=== PATIENT | female | born 1930 | race Asian ===

== ENCOUNTER 2016-12-21 13:05 | Emergency (ER) | payer OTHER ==
[~2016-12-21] VITALS: Ht 154.9 cm; Wt 75.0 kg
[~2016-12-21 13:05] MED LIST: DOCU-119 PO; FERR1TAB24 PO; METO50TA5 PO; MULT-71 PO; OMEP20CA10 PO; PANT40TA25 PO
[2016-12-21] MEDS ORDERED: FURO20 PO (13:44)
[2016-12-21] MEDS ORDERED: METO-323 PO (13:44)
[2016-12-21] MEDS ORDERED: ALLO100T PO (13:44)
[2016-12-21] MEDS ORDERED: KDUR10 PO (13:44)
[2016-12-21] MEDS ORDERED: IBUPROFEN 800 MG TABLET PO ONE (15:30)
[2016-12-21 17:16] VITALS: BP 114/68
== END 2016-12-21 17:29 | disposition home or self-care (01) ==
LOC: EMS 13:06
DX: S40.021A Contusion of right upper arm, initial encounter (principal); M79.641 Pain in right hand; J44.9 Chronic obstructive pulmonary disease, unspecified; E78.00 Pure hypercholesterolemia, unspecified; W01.0XXA Fall on same level from slipping, tripping and stumbling without subsequent striking against object, initial encounter; Y93.89 Activity, other specified; Y92.89 Other specified places as the place of occurrence of the external cause; Y99.8 Other external cause status
CPT/HCPCS: 99284

== ENCOUNTER 2017-09-20 09:44 | Inpatient (IN) | payer MEDICARE, OTHER ==
[~2017-09-20] VITALS: Ht 152.4 cm; Wt 62.7 kg
[~2017-09-20 09:44] MED LIST changes: +ALLO100T PO; -DOCU-119 PO; -FERR1TAB24 PO; +FURO20 PO; +KDUR10 PO; +METO25XL PO; +METO50TA18 PO; -METO50TA5 PO; -MULT-71 PO; -OMEP20CA10 PO; -PANT40TA25 PO
[2017-09-20] MEDS ORDERED: CALC-1038 PO (10:05)
[2017-09-20] MEDS ORDERED: MULT-1259 PO (10:05)
[2017-09-20] MEDS ORDERED: OMEP10 PO (10:05)
[2017-09-20] MEDS ORDERED: ATOR20TA86 PO (10:05)
[2017-09-20 10:56] LABS: BASOPHILS % (AUTO) 0.6 % (0.0-2.0); EOSINOPHILS % (AUTO) 6.1 % (1.0-6.0); HEMATOCRIT 32.3 % (36-46); HEMOGLOBIN 10.6 g/dL (12.0-16.0); MEAN CORPUSCULAR HEMOGLOBIN 29.8 pg (26.0-34.0); MEAN CORPUSCULAR HGB CONC 32.7 G/dL (31.0-37.0); MEAN CORPUSCULAR VOLUME 91 fL (80-100); MONOCYTES # (AUTO) 0.6 K/uL (0.1-1.0); MONOCYTES % (AUTO) 6.9 % (2.0-9.0); NEUTROPHILS % (AUTO) 75.4 % (40.0-70.0); PLATELET COUNT (AUTO) 440 K/uL (150-450); RED BLOOD CELL COUNT(AUTO) 3.54 MIL/uL (4.00-5.20); RED CELL DISTRIBUTION WIDTH 17.2 % (11.5-14.5)
[2017-09-20 11:10] LABS: GLUCOSE, URINE (UA) NEGATIVE (NEGATIVE); KETONES,URINE TRACE mg/dL (NEGATIVE); LEUKOCYTE ESTERASE ,URINE SMALL (NEGATIVE); NITRATE,URINE NEGATIVE (NEGATIVE); OCCULT BLOOD,URINE NEGATIVE (NEGATIVE); PROTEIN,URINE TRACE (NEGATIVE)
[2017-09-20 11:11] LABS: CALCIUM, TOTAL 8.8 mg/dL (8.8-10.5); CREATININE 1.55 mg/dL (0.60-1.30); POTASSIUM 4.6 mmol/L (3.5-5.1)
[2017-09-20 11:13] LABS: APPEARANCE,URINE HAZY (CLEAR); BILIRUBIN,URINE PRELIM. POSITIVE (NEGATIVE)
[2017-09-20 11:14] LABS: ALBUMIN 2.6 g/dL (3.4-5.0); BILIRUBIN,TOTAL 0.7 mg/dL (0.1-1.0); TOTAL PROTEIN, SERUM 7.6 g/dL (6.4-8.2)
[2017-09-20 11:21] LABS: BACTERIA,URINE Few /HPF (None Seen); RBC,URINE 0-2 /HPF (0-2); SQUAMOUS EPITHELIAL CELL,UR Rare /LPF (None Seen)
[2017-09-20] MEDS ORDERED: SODIUM CHLORIDE 0.9% 1,000 ML IV ONE ×2 (12:30→20:00)
[2017-09-20] MEDS ORDERED: BARIUM SULFATE 0.1% SUSPENSION 450 ML BOTTLE PO ONE (14:30)
[2017-09-20] MEDS ORDERED: SODIUM CHLORIDE 0.9% 100 ML ONE (14:50)
[2017-09-20] MEDS ORDERED: IOVERSOL 350 MG/ML 100 ML VIAL ONE (14:50)
[2017-09-20] MEDS ORDERED: ONDANSETRON HCL 4 MG/2 ML VIAL IVP ONE ×2 (15:45→20:00)
[2017-09-20] MEDS ORDERED: 0.9% SODIUM CHLORIDE 10 ML SYRINGE IVP PRN (20:00)
[2017-09-20] MEDS ORDERED: ACETAMINOPHEN 325 MG TABLET PO PRN (20:00)
[2017-09-20] MEDS ORDERED: HYDROmorphone 2 MG/ML SYRINGE IVP ONE (20:00)
[2017-09-20] MEDS ORDERED: ONDANSETRON HCL 4 MG/2 ML VIAL IVP PRN (20:00)
[2017-09-20] MEDS ORDERED: ASPIRIN 325 MG TABLET PO ONE (20:15)
[2017-09-20 22:35] LABS: INFLUENZA TYPE A NEGATIVE FOR TYPE A (NEGATIVE); INFLUENZA TYPE B NEGATIVE FOR TYPE B (NEGATIVE)
[2017-09-20] MEDS ORDERED: HEPARIN SODIUM,PORCINE 5,000 UNITS/ML VIAL SQ SCH (23:00)
[2017-09-20 23:18] VITALS: BP 110/61
[2017-09-21 04:53] VITALS: BP 104/56
[2017-09-21 07:31] LABS: BASOPHILS % (AUTO) 0.8 % (0.0-2.0); EOSINOPHILS % (AUTO) 8.1 % (1.0-6.0); HEMATOCRIT 26.5 % (36-46); HEMOGLOBIN 8.7 g/dL (12.0-16.0); LYMPHOCYTES % (AUTO) 14.7 % (22.0-44.0); MEAN CORPUSCULAR HEMOGLOBIN 30.2 pg (26.0-34.0); MEAN CORPUSCULAR VOLUME 92 fL (80-100); MONOCYTES # (AUTO) 0.6 K/uL (0.1-1.0); NEUTROPHILS # (AUTO) 4.5 K/uL (1.8-7.7); NEUTROPHILS % (AUTO) 67.4 % (40.0-70.0); PLATELET COUNT (AUTO) 352 K/uL (150-450); RED BLOOD CELL COUNT(AUTO) 2.89 MIL/uL (4.00-5.20); RED CELL DISTRIBUTION WIDTH 17.7 % (11.5-14.5)
[2017-09-21 07:37] LABS: ALBUMIN 2.1 g/dL (3.4-5.0); BILIRUBIN,TOTAL 0.4 mg/dL (0.1-1.0); CALCIUM, TOTAL 7.8 mg/dL (8.8-10.5); CREATININE 1.52 mg/dL (0.60-1.30); POTASSIUM 3.8 mmol/L (3.5-5.1)
[2017-09-21] MEDS: METOPROLOL SUCCINATE 25 MG ER TABLET PO SCH (09:03)
[2017-09-21] MEDS: POTASSIUM CHLORIDE 20 MEQ ER TABLET PO SCH (09:03)
[2017-09-21] MEDS: OMEPRAZOLE 10 MG CAPSULE PO SCH (09:03)
[2017-09-21] MEDS: ALLOPURINOL 100 MG TABLET PO SCH (09:03)
[2017-09-21] MEDS: CALCIUM OYSTER SHELL 500 MG TABLET PO SCH (09:04)
[2017-09-21] MEDS: FUROSEMIDE 20 MG TABLET PO SCH (09:04)
[2017-09-21] MEDS: MULTIVITAMINS WITH MINERALS, THERAPEUTIC TABLET PO SCH (09:04)
[2017-09-21 11:26] VITALS: BP 111/60
[2017-09-21 11:28] VITALS: BP 107/59
[2017-09-21] MEDS ORDERED: PEG 3350/NA SULF,BICARB,CL/KCL 4000 ML SOLUTION PO ONE (12:00)
[2017-09-21 15:46] VITALS: BP 110/57
[2017-09-21 16:20] LABS: VITAMIN B12 LEVEL 1133 pg/mL (211-911)
[2017-09-21 16:31] LABS: FOLATE SERUM > 24.0 ng/mL (5.4-)
[2017-09-21 19:57] VITALS: BP 111/52
[2017-09-21] MEDS: ATORVASTATIN CALCIUM 20 MG TABLET PO SCH ×2 (20:30→20:36)
[2017-09-22] VITALS (7 sets, daily range): BP systolic 98–128; BP diastolic 48–68
[2017-09-22 05:52] LABS: BASOPHILS % (AUTO) 0.8 % (0.0-2.0); EOSINOPHILS % (AUTO) 7.3 % (1.0-6.0); HEMATOCRIT 26.9 % (36-46); HEMOGLOBIN 8.8 g/dL (12.0-16.0); LYMPHOCYTES # (AUTO) 1.2 K/uL (1.0-4.8); LYMPHOCYTES % (AUTO) 16.1 % (22.0-44.0); MEAN CORPUSCULAR HEMOGLOBIN 29.8 pg (26.0-34.0); MEAN CORPUSCULAR HGB CONC 32.7 G/dL (31.0-37.0); MEAN CORPUSCULAR VOLUME 91 fL (80-100); MONOCYTES # (AUTO) 0.6 K/uL (0.1-1.0); MONOCYTES % (AUTO) 8.1 % (2.0-9.0); NEUTROPHILS # (AUTO) 4.9 K/uL (1.8-7.7); NEUTROPHILS % (AUTO) 67.7 % (40.0-70.0); PLATELET COUNT (AUTO) 366 K/uL (150-450); RED BLOOD CELL COUNT(AUTO) 2.95 MIL/uL (4.00-5.20); RED CELL DISTRIBUTION WIDTH 17.3 % (11.5-14.5)
[2017-09-22 06:03] LABS: CALCIUM, TOTAL 8.1 mg/dL (8.8-10.5); CREATININE 1.33 mg/dL (0.60-1.30); MAGNESIUM 1.9 mg/dL (1.80-2.40); PHOSPHORUS 3.7 mg/dL (2.5-4.9); POTASSIUM 4.3 mmol/L (3.5-5.1)
[2017-09-22 07:09] LABS: % IRON SATURATION 11.7 % (22-44)
[2017-09-22] MEDS: POTASSIUM CHLORIDE 20 MEQ ER TABLET PO SCH (09:58)
[2017-09-22] MEDS: MULTIVITAMINS WITH MINERALS, THERAPEUTIC TABLET PO SCH (09:58)
[2017-09-22] MEDS: FUROSEMIDE 20 MG TABLET PO SCH (09:58)
[2017-09-22] MEDS: OMEPRAZOLE 10 MG CAPSULE PO SCH (09:58)
[2017-09-22] MEDS: ALLOPURINOL 100 MG TABLET PO SCH (10:00)
[2017-09-22] MEDS: EPOETIN ALFA 10,000 UNITS/ML VIAL SQ SCH (10:00)
[2017-09-22] MEDS: CALCIUM OYSTER SHELL 500 MG TABLET PO SCH (10:00)
[2017-09-22] MEDS: METOPROLOL SUCCINATE 25 MG ER TABLET PO SCH (10:05)
[2017-09-22] MEDS ORDERED: SODIUM CHLORIDE 0.9% 1,000 ML IV ONE (11:00)
[2017-09-22] MEDS ORDERED: KDUR20 PO (12:36)
[2017-09-22] MEDS ORDERED: METO-558 PO (12:36)
[2017-09-22] MEDS: SOD FERRIC GLUC COMPLX/SUCROSE 125 MG in SODIUM CHLORIDE 0.9% 100 ML IV SCH (13:48)
[2017-09-22] MEDS: ONDANSETRON HCL 4 MG/2 ML VIAL IVP SCH ×2 (15:35→18:43)
[2017-09-22] MEDS ORDERED: PEG 3350/NA SULF,BICARB,CL/KCL 4000 ML SOLUTION PO ONE (18:00)
[2017-09-22] MEDS: ATORVASTATIN CALCIUM 20 MG TABLET PO SCH (21:44)
[2017-09-23] VITALS (7 sets, daily range): BP systolic 103–115; BP diastolic 47–67
[2017-09-23] MEDS: ONDANSETRON HCL 4 MG/2 ML VIAL IVP SCH ×2 (00:33→06:08)
[2017-09-23] MEDS ORDERED: PROPOFOL 1% 20 ML VIAL IVP ONE (04:13)
[2017-09-23] MEDS ORDERED: EPHEDrine SULFATE 50 MG/ML VIAL IM ONE (04:13)
[2017-09-23 07:19] LABS: BASOPHILS # (AUTO) 0.05 K/uL (0.00-0.20); BASOPHILS % (AUTO) 0.7 % (0.0-2.0); EOSINOPHILS # (AUTO) 0.55 K/uL (0.00-0.70); EOSINOPHILS % (AUTO) 8.08 % (1.0-6.0); HEMATOCRIT 26.9 % (36-46); HEMOGLOBIN 8.5 g/dL (12.0-16.0); MEAN CORPUSCULAR HEMOGLOBIN 29.1 pg (26.0-34.0); MEAN CORPUSCULAR HGB CONC 31.7 G/dL (31.0-37.0); MEAN CORPUSCULAR VOLUME 92 fL (80-100); MONOCYTES # (AUTO) 0.6 K/uL (0.1-1.0); MONOCYTES % (AUTO) 8.6 % (2.0-9.0); NEUTROPHILS # (AUTO) 4.6 K/uL (1.8-7.7); NEUTROPHILS % (AUTO) 67.6 % (40.0-70.0); PLATELET COUNT (AUTO) 353 K/uL (150-450); RED BLOOD CELL COUNT(AUTO) 2.93 MIL/uL (4.00-5.20); RED CELL DISTRIBUTION WIDTH 17.5 % (11.5-14.5)
[2017-09-23 07:30] LABS: CREATININE 1.39 mg/dL (0.60-1.30); PHOSPHORUS 3.4 mg/dL (2.5-4.9); POTASSIUM 4.2 mmol/L (3.5-5.1)
[2017-09-23] MEDS: OMEPRAZOLE 10 MG CAPSULE PO SCH (09:00)
[2017-09-23] MEDS: MULTIVITAMINS WITH MINERALS, THERAPEUTIC TABLET PO SCH (09:00)
[2017-09-23] MEDS: METOPROLOL SUCCINATE 25 MG ER TABLET PO SCH (09:00)
[2017-09-23] MEDS: CALCIUM OYSTER SHELL 500 MG TABLET PO SCH (09:00)
[2017-09-23] MEDS: ALLOPURINOL 100 MG TABLET PO SCH (09:00)
[2017-09-23] MEDS: FUROSEMIDE 20 MG TABLET PO SCH (09:00)
[2017-09-23] MEDS: POTASSIUM CHLORIDE 20 MEQ ER TABLET PO SCH (09:00)
[2017-09-23] MEDS ORDERED: SODIUM CHLORIDE 0.9% 1,000 ML IV ONE ×3 (09:40→12:30)
[2017-09-23] MEDS ORDERED: RINGERS SOLUTION,LACTATED 2,000 ML IV ONE (12:30)
[2017-09-23] MEDS ORDERED: SODIUM CL IRRIG SOLN BAG 3,000 ML IRRIG ONE (12:31)
[2017-09-23] MEDS: SOD FERRIC GLUC COMPLX/SUCROSE 125 MG in SODIUM CHLORIDE 0.9% 100 ML IV SCH (14:27)
[2017-09-23] MEDS ORDERED: SODIUM CHLORIDE 0.9% 50 ML ONE (14:32)
[2017-09-23] MEDS: OXYGEN THERAPY IH SCH (20:00)
[2017-09-23] MEDS: ATORVASTATIN CALCIUM 20 MG TABLET PO SCH (20:50)
[2017-09-24 05:28] VITALS: BP 117/58
[2017-09-24 07:15] VITALS: BP 103/55
[2017-09-24 07:33] LABS: BASOPHILS # (AUTO) 0.04 K/uL (0.00-0.20); BASOPHILS % (AUTO) 0.5 % (0.0-2.0); EOSINOPHILS % (AUTO) 6.95 % (1.0-6.0); HEMATOCRIT 27.7 % (36-46); HEMOGLOBIN 8.8 g/dL (12.0-16.0); LYMPHOCYTES # (AUTO) 1.1 K/uL (1.0-4.8); LYMPHOCYTES % (AUTO) 15.8 % (22.0-44.0); MEAN CORPUSCULAR HEMOGLOBIN 29.2 pg (26.0-34.0); MEAN CORPUSCULAR HGB CONC 31.8 G/dL (31.0-37.0); MEAN CORPUSCULAR VOLUME 92 fL (80-100); MONOCYTES # (AUTO) 0.6 K/uL (0.1-1.0); MONOCYTES % (AUTO) 8.2 % (2.0-9.0); NEUTROPHILS # (AUTO) 4.9 K/uL (1.8-7.7); NEUTROPHILS % (AUTO) 68.6 % (40.0-70.0); PLATELET COUNT (AUTO) 341 K/uL (150-450); RED BLOOD CELL COUNT(AUTO) 3.02 MIL/uL (4.00-5.20)
[2017-09-24] MEDS ORDERED: GUM MASTIC/STORAX/MSAL/ALCOHOL LIQUID 0.67 ML VIAL TP ONE (07:36)
[2017-09-24] MEDS ORDERED: LIDOCAINE HCL 1%/EPI 1:200,000/PF 10 ML VIAL ONE (07:36)
[2017-09-24] MEDS ORDERED: RINGERS SOLUTION,LACTATED 0 ML IV ONE (07:36)
[2017-09-24] MEDS ORDERED: SODIUM CHLORIDE 0.9% 0 ML IV ONE (07:36)
[2017-09-24] MEDS ORDERED: SODIUM CL IRRIG SOLN BAG 0 ML IRRIG ONE (07:36)
[2017-09-24 07:44] LABS: INR 1.1 (0.9-1.1); PROTHROMBIN TIME 11.8 SEC (9.4-11.6)
[2017-09-24 07:47] LABS: CALCIUM, TOTAL 8.4 mg/dL (8.8-10.5); CREATININE 1.26 mg/dL (0.60-1.30); MAGNESIUM 2.1 mg/dL (1.80-2.40); PHOSPHORUS 3.5 mg/dL (2.5-4.9)
[2017-09-24] MEDS: OXYGEN THERAPY IH SCH ×2 (08:00→20:00)
[2017-09-24] MEDS ORDERED: HEPARIN SODIUM 1000 UNITS/NS 500 ML ONE (09:00)
[2017-09-24] MEDS: METOPROLOL SUCCINATE 25 MG ER TABLET PO SCH (09:00)
[2017-09-24] MEDS ORDERED: ACETAMINOPHEN 1000 MG/ISO-OSM 0 ML IV ONE (09:17)
[2017-09-24] MEDS ORDERED: RINGERS SOLUTION,LACTATED 1,000 ML IV ONE (09:18)
[2017-09-24] MEDS ORDERED: DEXTROSE 50%-WATER 25 GM/50 ML SYRINGE IVP ONE (09:45)
[2017-09-24] MEDS: POTASSIUM CHLORIDE 20 MEQ ER TABLET PO SCH (10:55)
[2017-09-24] MEDS: FUROSEMIDE 20 MG TABLET PO SCH (10:55)
[2017-09-24] MEDS: MULTIVITAMINS WITH MINERALS, THERAPEUTIC TABLET PO SCH (10:55)
[2017-09-24] MEDS: OMEPRAZOLE 10 MG CAPSULE PO SCH (10:55)
[2017-09-24] MEDS: CALCIUM OYSTER SHELL 500 MG TABLET PO SCH (10:55)
[2017-09-24] MEDS: ALLOPURINOL 100 MG TABLET PO SCH (10:57)
[2017-09-24 11:22] VITALS: BP 127/62
[2017-09-24] MEDS: SOD FERRIC GLUC COMPLX/SUCROSE 125 MG in SODIUM CHLORIDE 0.9% 100 ML IV SCH (13:11)
[2017-09-24 16:00] VITALS: BP 118/66
[2017-09-24 19:35] VITALS: BP 108/64
[2017-09-24] MEDS: ATORVASTATIN CALCIUM 20 MG TABLET PO SCH (20:47)
[2017-09-24] MEDS: TEMAZEPAM 15 MG CAPSULE PO PRN (20:47)
[2017-09-25] VITALS (9 sets, daily range): BP systolic 107–132; BP diastolic 55–77
[2017-09-25 08:00] LABS: BASOPHILS # (AUTO) 0.04 K/uL (0.00-0.20); BASOPHILS % (AUTO) 0.5 % (0.0-2.0); EOSINOPHILS % (AUTO) 9.21 % (1.0-6.0); HEMATOCRIT 29.8 % (36-46); HEMOGLOBIN 9.4 g/dL (12.0-16.0); LYMPHOCYTES # (AUTO) 0.8 K/uL (1.0-4.8); LYMPHOCYTES % (AUTO) 9.9 % (22.0-44.0); MEAN CORPUSCULAR HEMOGLOBIN 29.2 pg (26.0-34.0); MEAN CORPUSCULAR HGB CONC 31.5 G/dL (31.0-37.0); MEAN CORPUSCULAR VOLUME 93 fL (80-100); MONOCYTES # (AUTO) 0.7 K/uL (0.1-1.0); MONOCYTES % (AUTO) 8.8 % (2.0-9.0); NEUTROPHILS # (AUTO) 5.5 K/uL (1.8-7.7); NEUTROPHILS % (AUTO) 71.6 % (40.0-70.0); PLATELET COUNT (AUTO) 369 K/uL (150-450); RED BLOOD CELL COUNT(AUTO) 3.21 MIL/uL (4.00-5.20); RED CELL DISTRIBUTION WIDTH 18.3 % (11.5-14.5)
[2017-09-25] MEDS: OXYGEN THERAPY IH SCH ×2 (08:00→20:07)
[2017-09-25] MEDS ORDERED: POTASSIUM CHLORIDE 20 MEQ ER TABLET PO SCH (09:00)
[2017-09-25] MEDS: CALCIUM OYSTER SHELL 500 MG TABLET PO SCH (09:00)
[2017-09-25] MEDS: OMEPRAZOLE 10 MG CAPSULE PO SCH (09:00)
[2017-09-25] MEDS: METOPROLOL SUCCINATE 25 MG ER TABLET PO SCH (09:00)
[2017-09-25] MEDS: ALLOPURINOL 100 MG TABLET PO SCH (09:00)
[2017-09-25] MEDS: FUROSEMIDE 20 MG TABLET PO SCH (09:00)
[2017-09-25] MEDS: MULTIVITAMINS WITH MINERALS, THERAPEUTIC TABLET PO SCH (09:00)
[2017-09-25] MEDS: EPOETIN ALFA 10,000 UNITS/ML VIAL SQ SCH (09:10)
[2017-09-25 09:14] LABS: CALCIUM, TOTAL 8.4 mg/dL (8.8-10.5); CREATININE 1.35 mg/dL (0.60-1.30); PHOSPHORUS 3.6 mg/dL (2.5-4.9); POTASSIUM 4.2 mmol/L (3.5-5.1)
[2017-09-25] MEDS ORDERED: SODIUM BICARBONATE 50 MEQ/50 ML VIAL ONE (10:11)
[2017-09-25] MEDS ORDERED: IOHEXOL 300 MG/ML 100 ML VIAL ONE (10:11)
[2017-09-25] MEDS ORDERED: LIDOCAINE HCL/PF 1% 30 ML VIAL ONE (10:11)
[2017-09-25] MEDS ORDERED: HEPARIN SODIUM 1000 UNITS/NS 1,000 ML ONE (10:12)
[2017-09-25] MEDS ORDERED: FentaNYL CITRATE-PF 100 MCG/2 ML VIAL ONE (11:53)
[2017-09-25] MEDS ORDERED: MIDAZOLAM HCL 2 MG/2 ML VIAL ONE (11:53)
[2017-09-25] MEDS ORDERED: HEPARIN SODIUM 1000 UNITS/NS 1,000 ML IARTER ONE (12:37)
[2017-09-25] MEDS ORDERED: SODIUM CHLORIDE 0.9% 500 ML IV ONE (12:37)
[2017-09-25] MEDS ORDERED: IOHEXOL 300 MG/ML 150 ML VIAL IARTER ONE (12:45)
[2017-09-25] MEDS ORDERED: LIDOCAINE 1% 30 ML/SOD BICARB 8.4% 4 ML SQ ONE (12:45)
[2017-09-25] MEDS: SOD FERRIC GLUC COMPLX/SUCROSE 125 MG in SODIUM CHLORIDE 0.9% 100 ML IV SCH (13:50)
[2017-09-25] MEDS: ATORVASTATIN CALCIUM 20 MG TABLET PO SCH (20:44)
[2017-09-26] VITALS (7 sets, daily range): BP systolic 99–128; BP diastolic 56–69
[2017-09-26 06:23] LABS: CALCIUM, TOTAL 8.1 mg/dL (8.8-10.5); CREATININE 1.24 mg/dL (0.60-1.30); PHOSPHORUS 3.4 mg/dL (2.5-4.9); POTASSIUM 4.4 mmol/L (3.5-5.1)
[2017-09-26] MEDS: OXYGEN THERAPY IH SCH ×2 (08:00→20:00)
[2017-09-26] MEDS: MULTIVITAMINS WITH MINERALS, THERAPEUTIC TABLET PO SCH (08:55)
[2017-09-26] MEDS: ALLOPURINOL 100 MG TABLET PO SCH (08:55)
[2017-09-26] MEDS: OMEPRAZOLE 10 MG CAPSULE PO SCH (08:55)
[2017-09-26] MEDS: FUROSEMIDE 20 MG TABLET PO SCH (08:55)
[2017-09-26] MEDS: CALCIUM OYSTER SHELL 500 MG TABLET PO SCH (08:55)
[2017-09-26] MEDS ORDERED: POTASSIUM CHLORIDE 10 MEQ ER TABLET PO SCH (09:00)
[2017-09-26] MEDS: METOPROLOL SUCCINATE 25 MG ER TABLET PO SCH (09:00)
[2017-09-26] MEDS ORDERED: MAGNESIUM CITRATE 300 ML ORAL SOLUTION PO ONE (09:00)
[2017-09-26] MEDS: NEOMYCIN SULFATE 500 MG TABLET PO SCH ×2 (12:23→17:36)
[2017-09-26] MEDS: SOD FERRIC GLUC COMPLX/SUCROSE 125 MG in SODIUM CHLORIDE 0.9% 100 ML IV SCH (12:27)
[2017-09-26] MEDS: ERYTHROMYCIN BASE 500 MG TABLET PO SCH ×2 (12:27→17:36)
[2017-09-26] MEDS: ATORVASTATIN CALCIUM 20 MG TABLET PO SCH (20:38)
[2017-09-26] MEDS: TEMAZEPAM 15 MG CAPSULE PO PRN (22:25)
[2017-09-27 05:02] VITALS: BP 109/59
[2017-09-27] MEDS ORDERED: 0.9% SODIUM CHLORIDE 10 ML SYRINGE IVP ONE (06:44)
[2017-09-27 06:46] LABS: BASOPHILS % (AUTO) 0.4 % (0.0-2.0); EOSINOPHILS % (AUTO) 6.2 % (1.0-6.0); HEMATOCRIT 30.7 % (36-46); HEMOGLOBIN 9.9 g/dL (12.0-16.0); LYMPHOCYTES # (AUTO) 0.7 K/uL (1.0-4.8); LYMPHOCYTES % (AUTO) 6.7 % (22.0-44.0); MEAN CORPUSCULAR HEMOGLOBIN 29.6 pg (26.0-34.0); MEAN CORPUSCULAR VOLUME 92 fL (80-100); MONOCYTES # (AUTO) 0.6 K/uL (0.1-1.0); MONOCYTES % (AUTO) 6.4 % (2.0-9.0); NEUTROPHILS # (AUTO) 7.8 K/uL (1.8-7.7); NEUTROPHILS % (AUTO) 80.3 % (40.0-70.0); PLATELET COUNT (AUTO) 372 K/uL (150-450); RED BLOOD CELL COUNT(AUTO) 3.33 MIL/uL (4.00-5.20); RED CELL DISTRIBUTION WIDTH 18.4 % (11.5-14.5)
[2017-09-27] MEDS ORDERED: BUPIVACAINE HCL/PF 0.25% 30 ML VIAL ONE (06:55)
[2017-09-27] MEDS ORDERED: RINGERS SOLUTION,LACTATED 1,000 ML IV SCH (07:00)
[2017-09-27] MEDS ORDERED: HEPARIN SODIUM 1000 UNITS/NS 500 ML ONE (07:22)
[2017-09-27 07:23] LABS: CALCIUM, TOTAL 8.3 mg/dL (8.8-10.5); CREATININE 1.19 mg/dL (0.60-1.30); MAGNESIUM 2.3 mg/dL (1.80-2.40); PHOSPHORUS 3.2 mg/dL (2.5-4.9); POTASSIUM 3.9 mmol/L (3.5-5.1)
[2017-09-27] MEDS ORDERED: MetroNIDAZOLE 500 MG/NACL 100 ML IV ONE (07:36)
[2017-09-27] MEDS ORDERED: LIDOCAINE HCL 2%/EPI 1:200,000/PF 20 ML VIAL ONE (07:49)
[2017-09-27] MEDS ORDERED: BUPIVACAINE LIPOSOME/PF 1.3%-13.3MG/ML SUSPENSION 20 ML VIAL INJ ONE (08:45)
[2017-09-27] MEDS ORDERED: BUPIVACAINE HCL/PF 0.5% 30 ML VIAL ONE (08:59)
[2017-09-27] MEDS: CALCIUM OYSTER SHELL 500 MG TABLET PO SCH (09:00)
[2017-09-27] MEDS: FUROSEMIDE 20 MG TABLET PO SCH (09:00)
[2017-09-27] MEDS: MULTIVITAMINS WITH MINERALS, THERAPEUTIC TABLET PO SCH (09:00)
[2017-09-27] MEDS: OMEPRAZOLE 10 MG CAPSULE PO SCH (09:00)
[2017-09-27] MEDS: ALLOPURINOL 100 MG TABLET PO SCH (09:00)
[2017-09-27] MEDS ORDERED: FentaNYL CITRATE-PF 100 MCG/2 ML VIAL IVP PRN (10:15)
[2017-09-27] MEDS ORDERED: HYDROmorphone 2 MG/ML SYRINGE IVP PRN ×3 (10:15→16:15)
[2017-09-27 10:45] VITALS: BP 104/57
[2017-09-27] MEDS: METOPROLOL SUCCINATE 25 MG ER TABLET PO SCH (11:19)
[2017-09-27] MEDS: SOD FERRIC GLUC COMPLX/SUCROSE 125 MG in SODIUM CHLORIDE 0.9% 100 ML IV SCH (11:32)
[2017-09-27] MEDS: EPOETIN ALFA 10,000 UNITS/ML VIAL SQ SCH (11:32)
[2017-09-27] MEDS: OXYGEN THERAPY IH SCH ×4 (11:33→20:11)
[2017-09-27] MEDS ORDERED: ONDANSETRON HCL 4 MG/2 ML VIAL IVP PRN (15:30)
[2017-09-27 16:16] VITALS: BP 101/53
[2017-09-27] MEDS ORDERED: MORPHINE SULFATE 2 MG/ML SYRINGE IVP PRN (19:15)
[2017-09-27] MEDS: ATORVASTATIN CALCIUM 20 MG TABLET PO SCH (20:10)
[2017-09-27 20:18] VITALS: BP 112/58
[2017-09-27] MEDS ORDERED: HYDROmorphone 2 MG/ML SYRINGE IVP ONE (22:51)
[2017-09-27] MEDS ORDERED: MIDAZOLAM HCL 2 MG/2 ML VIAL IVP ONE (22:51)
[2017-09-27] MEDS ORDERED: FentaNYL CITRATE-PF 250 MCG/5 ML VIAL IVP ONE (22:51)
[2017-09-28] VITALS (8 sets, daily range): BP systolic 92–118; BP diastolic 53–69
[2017-09-28] MEDS ORDERED: VECURONIUM BROMIDE 10 MG/VIAL IVP ONE (01:13)
[2017-09-28] MEDS ORDERED: PROPOFOL 1% 20 ML VIAL IVP ONE (01:13)
[2017-09-28] MEDS ORDERED: PHENYLEPHRINE HCL 10 MG/ML VIAL IVP ONE (01:13)
[2017-09-28] MEDS ORDERED: LIDOCAINE HCL/PF 2% 5 ML VIAL IM ONE (01:13)
[2017-09-28] MEDS ORDERED: SUCCINYLCHOLINE CHLORIDE 20 MG/ML 10 ML VIAL IVP ONE (01:13)
[2017-09-28 07:13] LABS: CALCIUM, TOTAL 8.1 mg/dL (8.8-10.5); CREATININE 2.18 mg/dL (0.60-1.30); MAGNESIUM 2.2 mg/dL (1.80-2.40); PHOSPHORUS 5.7 mg/dL (2.5-4.9); POTASSIUM 4.8 mmol/L (3.5-5.1)
[2017-09-28 07:20] LABS: BASOPHILS # (AUTO) 0.01 K/uL (0.00-0.20); BASOPHILS % (AUTO) 0.1 % (0.0-2.0); EOSINOPHILS % (AUTO) 0 % (1.0-6.0); HEMOGLOBIN 9.9 g/dL (12.0-16.0); LYMPHOCYTES # (AUTO) 0.8 K/uL (1.0-4.8); LYMPHOCYTES % (AUTO) 5.5 % (22.0-44.0); MEAN CORPUSCULAR HEMOGLOBIN 29.8 pg (26.0-34.0); MEAN CORPUSCULAR HGB CONC 31.9 G/dL (31.0-37.0); MEAN CORPUSCULAR VOLUME 94 fL (80-100); MONOCYTES # (AUTO) 0.6 K/uL (0.1-1.0); MONOCYTES % (AUTO) 3.9 % (2.0-9.0); NEUTROPHILS # (AUTO) 13.5 K/uL (1.8-7.7); PLATELET COUNT (AUTO) 336 K/uL (150-450); RED BLOOD CELL COUNT(AUTO) 3.31 MIL/uL (4.00-5.20); RED CELL DISTRIBUTION WIDTH 18.8 % (11.5-14.5)
[2017-09-28 07:44] LABS: NEUTROPHILS % (AUTO) 90.5 % (40.0-70.0)
[2017-09-28] MEDS: CALCIUM OYSTER SHELL 500 MG TABLET PO SCH (09:03)
[2017-09-28] MEDS: MULTIVITAMINS WITH MINERALS, THERAPEUTIC TABLET PO SCH (09:03)
[2017-09-28] MEDS: OXYGEN THERAPY IH SCH ×4 (09:03→23:46)
[2017-09-28] MEDS: OMEPRAZOLE 10 MG CAPSULE PO SCH (09:03)
[2017-09-28] MEDS: METOPROLOL SUCCINATE 25 MG ER TABLET PO SCH (09:04)
[2017-09-28] MEDS: ALLOPURINOL 100 MG TABLET PO SCH (09:06)
[2017-09-28] MEDS: DEXTROSE 5%-0.45% SODIUM CHL 1,000 ML IV SCH (09:08)
[2017-09-28] MEDS: ALBUMIN HUMAN 25%-25GM/100ML 100 ML IV SCH ×3 (10:46→23:46)
[2017-09-28] MEDS: SOD FERRIC GLUC COMPLX/SUCROSE 125 MG in SODIUM CHLORIDE 0.9% 100 ML IV SCH (12:38)
[2017-09-28 16:25] LABS: CREATININE,URINE RANDOM 244.8 mg/dL (30.0-125.0); SODIUM,URINE RANDOM 6 mmol/l (20-110); UREA NITROGEN,URINE RANDOM 274 mg/dL (350-1000)
[2017-09-28 16:31] LABS: GLUCOSE, URINE (UA) NEGATIVE (NEGATIVE); KETONES,URINE NEGATIVE (NEGATIVE); LEUKOCYTE ESTERASE ,URINE TRACE (NEGATIVE); NITRATE,URINE NEGATIVE (NEGATIVE); OCCULT BLOOD,URINE TRACE (NEGATIVE); PROTEIN,URINE TRACE (NEGATIVE); UROBILINOGEN,URINE 0.2 mg/dL (<=1.0)
[2017-09-28 16:45] LABS: BILIRUBIN,URINE PRELIM. POSITIVE (NEGATIVE)
[2017-09-28 16:46] LABS: APPEARANCE,URINE HAZY (CLEAR); BACTERIA,URINE None Seen /HPF (None Seen); FINE GRANULAR CASTS,URINE 0-2 /LPF (None Seen); RBC,URINE 0-2 /HPF (0-2); SQUAMOUS EPITHELIAL CELL,UR Rare /LPF (None Seen); WBC,URINE 0-2 /HPF (0-5)
[2017-09-28] MEDS: ATORVASTATIN CALCIUM 20 MG TABLET PO SCH (19:59)
[2017-09-29 04:35] VITALS: BP 111/65
[2017-09-29] MEDS: ALBUMIN HUMAN 25%-25GM/100ML 100 ML IV SCH ×4 (05:13→20:26)
[2017-09-29 07:20] LABS: EOSINOPHILS # (AUTO) 0.02 K/uL (0.00-0.70); HEMATOCRIT 24.7 % (36-46); HEMOGLOBIN 7.8 g/dL (12.0-16.0); LYMPHOCYTES # (AUTO) 0.6 K/uL (1.0-4.8); LYMPHOCYTES % (AUTO) 5.1 % (22.0-44.0); MEAN CORPUSCULAR HEMOGLOBIN 29.6 pg (26.0-34.0); MEAN CORPUSCULAR HGB CONC 31.7 G/dL (31.0-37.0); MEAN CORPUSCULAR VOLUME 93 fL (80-100); MONOCYTES # (AUTO) 0.7 K/uL (0.1-1.0); MONOCYTES % (AUTO) 5.7 % (2.0-9.0); NEUTROPHILS # (AUTO) 11.1 K/uL (1.8-7.7); PLATELET COUNT (AUTO) 269 K/uL (150-450); RED BLOOD CELL COUNT(AUTO) 2.65 MIL/uL (4.00-5.20); RED CELL DISTRIBUTION WIDTH 20.1 % (11.5-14.5)
[2017-09-29 07:28] LABS: CALCIUM, TOTAL 8.2 mg/dL (8.8-10.5); CREATININE 2.51 mg/dL (0.60-1.30); MAGNESIUM 2.3 mg/dL (1.80-2.40); PHOSPHORUS 3.9 mg/dL (2.5-4.9); POTASSIUM 4.1 mmol/L (3.5-5.1)
[2017-09-29 07:40] VITALS: BP 115/66
[2017-09-29] MEDS: OMEPRAZOLE 10 MG CAPSULE PO SCH (08:54)
[2017-09-29] MEDS: ALLOPURINOL 100 MG TABLET PO SCH (08:54)
[2017-09-29] MEDS: MULTIVITAMINS WITH MINERALS, THERAPEUTIC TABLET PO SCH (08:54)
[2017-09-29] MEDS: CALCIUM OYSTER SHELL 500 MG TABLET PO SCH (08:54)
[2017-09-29] MEDS: ASPIRIN 81 MG CHEWABLE TABLET PO SCH (08:54)
[2017-09-29] MEDS: OXYGEN THERAPY IH SCH ×3 (08:55→20:27)
[2017-09-29] MEDS: EPOETIN ALFA 10,000 UNITS/ML VIAL SQ SCH (08:56)
[2017-09-29] MEDS: METOPROLOL SUCCINATE 25 MG ER TABLET PO SCH (09:00)
[2017-09-29 11:21] VITALS: BP 109/60
[2017-09-29] MEDS: SOD FERRIC GLUC COMPLX/SUCROSE 125 MG in SODIUM CHLORIDE 0.9% 100 ML IV SCH (12:17)
[2017-09-29] MEDS ORDERED: FUROSEMIDE 20 MG/2 ML VIAL IVP PRN (16:00)
[2017-09-29] MEDS ORDERED: SODIUM CHLORIDE 0.9% 250 ML IV ONE (18:45)
[2017-09-29 20:13] VITALS: BP 115/70
[2017-09-29] MEDS: ATORVASTATIN CALCIUM 20 MG TABLET PO SCH (20:23)
[2017-09-29] MEDS ORDERED: FUROSEMIDE 20 MG/2 ML VIAL IVP ONE (22:00)
[2017-09-29 23:30] VITALS: BP 115/55
[2017-09-29 23:45] VITALS: BP 121/68
[2017-09-29] MEDS: DEXTROSE 5%-0.45% SODIUM CHL 1,000 ML IV SCH (23:50)
[2017-09-30] VITALS (23 sets, daily range): BP systolic 105–131; BP diastolic 56–78
[2017-09-30] MEDS ORDERED: FUROSEMIDE 20 MG/2 ML VIAL IVP ONE (04:00)
[2017-09-30] MEDS: ALBUMIN HUMAN 25%-25GM/100ML 100 ML IV SCH ×4 (04:32→21:07)
[2017-09-30 07:29] LABS: BASOPHILS % (AUTO) 0.4 % (0.0-2.0); EOSINOPHILS % (AUTO) 2.9 % (1.0-6.0); HEMATOCRIT 30.3 % (36-46); HEMOGLOBIN 9.9 g/dL (12.0-16.0); LYMPHOCYTES # (AUTO) 1.2 K/uL (1.0-4.8); LYMPHOCYTES % (AUTO) 10.2 % (22.0-44.0); MEAN CORPUSCULAR HEMOGLOBIN 29.5 pg (26.0-34.0); MEAN CORPUSCULAR HGB CONC 32.7 G/dL (31.0-37.0); MEAN CORPUSCULAR VOLUME 90 fL (80-100); MONOCYTES # (AUTO) 0.9 K/uL (0.1-1.0); MONOCYTES % (AUTO) 7.9 % (2.0-9.0); NEUTROPHILS # (AUTO) 9.3 K/uL (1.8-7.7); NEUTROPHILS % (AUTO) 78.6 % (40.0-70.0); PLATELET COUNT (AUTO) 254 K/uL (150-450); RED BLOOD CELL COUNT(AUTO) 3.36 MIL/uL (4.00-5.20); RED CELL DISTRIBUTION WIDTH 19.9 % (11.5-14.5)
[2017-09-30 08:20] LABS: CREATININE 2.13 mg/dL (0.60-1.30); MAGNESIUM 2.2 mg/dL (1.80-2.40); PHOSPHORUS 2.4 mg/dL (2.5-4.9); POTASSIUM 3.4 mmol/L (3.5-5.1)
[2017-09-30] MEDS: METOPROLOL SUCCINATE 25 MG ER TABLET PO SCH (08:56)
[2017-09-30] MEDS: CALCIUM OYSTER SHELL 500 MG TABLET PO SCH (08:56)
[2017-09-30] MEDS: NITROGLYCERIN 2% (1 GM=INCH) PACKET TP SCH ×3 (08:57→23:29)
[2017-09-30] MEDS: ASPIRIN 81 MG CHEWABLE TABLET PO SCH (08:57)
[2017-09-30] MEDS: MULTIVITAMINS WITH MINERALS, THERAPEUTIC TABLET PO SCH (08:57)
[2017-09-30] MEDS: ALLOPURINOL 100 MG TABLET PO SCH (08:57)
[2017-09-30] MEDS: OXYGEN THERAPY IH SCH ×2 (08:58→20:25)
[2017-09-30] MEDS: PANTOPRAZOLE SODIUM 40 MG/VIAL IVP SCH (08:58)
[2017-09-30 10:00] LABS: PLATELET MORPHOLOGY COMMENT NORMAL
[2017-09-30] MEDS: SODIUM CHL IV SCH (14:42)
[2017-09-30] MEDS: POTASSIUM CHLORIDE IV SCH (14:42)
[2017-09-30] MEDS: DEXTROSE IV SCH (14:42)
[2017-09-30] MEDS: ATORVASTATIN CALCIUM 20 MG TABLET PO SCH (20:25)
[2017-09-30] MEDS: TEMAZEPAM 15 MG CAPSULE PO PRN (23:28)
[2017-10-01] MEDS: POTASSIUM CHLORIDE IV SCH (02:11)
[2017-10-01] MEDS: SODIUM CHL IV SCH (02:11)
[2017-10-01] MEDS: DEXTROSE IV SCH (02:11)
[2017-10-01] MEDS: ALBUMIN HUMAN 25%-25GM/100ML 100 ML IV SCH ×4 (04:49→21:04)
[2017-10-01 04:51] VITALS: BP 104/60
[2017-10-01 07:35] LABS: BASOPHILS % (AUTO) 0.3 % (0.0-2.0); EOSINOPHILS % (AUTO) 7.1 % (1.0-6.0); HEMATOCRIT 24.9 % (36-46); HEMOGLOBIN 8.1 g/dL (12.0-16.0); LYMPHOCYTES # (AUTO) 0.4 K/uL (1.0-4.8); LYMPHOCYTES % (AUTO) 6.5 % (22.0-44.0); MEAN CORPUSCULAR HEMOGLOBIN 29.6 pg (26.0-34.0); MEAN CORPUSCULAR HGB CONC 32.7 G/dL (31.0-37.0); MEAN CORPUSCULAR VOLUME 91 fL (80-100); MONOCYTES # (AUTO) 0.5 K/uL (0.1-1.0); MONOCYTES % (AUTO) 8.3 % (2.0-9.0); NEUTROPHILS # (AUTO) 5.1 K/uL (1.8-7.7); NEUTROPHILS % (AUTO) 77.8 % (40.0-70.0); PLATELET COUNT (AUTO) 226 K/uL (150-450); RED BLOOD CELL COUNT(AUTO) 2.75 MIL/uL (4.00-5.20); RED CELL DISTRIBUTION WIDTH 19.5 % (11.5-14.5)
[2017-10-01 07:40] VITALS: BP 117/63
[2017-10-01 08:21] LABS: ALBUMIN 4.4 g/dL (3.4-5.0); BILIRUBIN,TOTAL 1.3 mg/dL (0.1-1.0); CREATININE 1.76 mg/dL (0.60-1.30); MAGNESIUM 1.9 mg/dL (1.80-2.40); POTASSIUM 3.1 mmol/L (3.5-5.1); TOTAL PROTEIN, SERUM 6.6 g/dL (6.4-8.2)
[2017-10-01] MEDS: METOPROLOL SUCCINATE 25 MG ER TABLET PO SCH (09:00)
[2017-10-01] MEDS: PANTOPRAZOLE SODIUM 40 MG/VIAL IVP SCH (09:14)
[2017-10-01] MEDS: OXYGEN THERAPY IH SCH ×2 (09:14→20:29)
[2017-10-01] MEDS: MULTIVITAMINS WITH MINERALS, THERAPEUTIC TABLET PO SCH (09:15)
[2017-10-01] MEDS: CALCIUM OYSTER SHELL 500 MG TABLET PO SCH (09:15)
[2017-10-01] MEDS: ALLOPURINOL 100 MG TABLET PO SCH (09:15)
[2017-10-01] MEDS: ASPIRIN 81 MG CHEWABLE TABLET PO SCH (09:15)
[2017-10-01] MEDS: NITROGLYCERIN 2% (1 GM=INCH) PACKET TP SCH ×3 (09:15→23:45)
[2017-10-01] MEDS ORDERED: POTASSIUM CHLORIDE 10% 40 MEQ/30 ML LIQUID UDCUP PO SCH (10:15)
[2017-10-01 11:07] VITALS: BP 114/69
[2017-10-01 15:23] VITALS: BP 121/69
[2017-10-01 19:53] VITALS: BP 108/62
[2017-10-01] MEDS ORDERED: POTASSIUM CHLORIDE 20 MEQ ER TABLET PO ONE (20:00)
[2017-10-01] MEDS: ATORVASTATIN CALCIUM 20 MG TABLET PO SCH (20:29)
[2017-10-01 23:25] VITALS: BP 111/71
[2017-10-02] MEDS: ALBUMIN HUMAN 25%-25GM/100ML 100 ML IV SCH ×2 (04:52→09:37)
[2017-10-02] MEDS ORDERED: SODIUM CHLORIDE 0.9% 50 ML ONE (04:57)
[2017-10-02 05:04] VITALS: BP 127/68
[2017-10-02 07:22] VITALS: BP 138/94
[2017-10-02 07:30] LABS: BASOPHILS % (AUTO) 0.4 % (0.0-2.0); EOSINOPHILS % (AUTO) 7.5 % (1.0-6.0); HEMATOCRIT 29.1 % (36-46); HEMOGLOBIN 9.4 g/dL (12.0-16.0); LYMPHOCYTES # (AUTO) 0.8 K/uL (1.0-4.8); LYMPHOCYTES % (AUTO) 10.5 % (22.0-44.0); MEAN CORPUSCULAR HEMOGLOBIN 30.1 pg (26.0-34.0); MEAN CORPUSCULAR HGB CONC 32.4 G/dL (31.0-37.0); MEAN CORPUSCULAR VOLUME 93 fL (80-100); MONOCYTES # (AUTO) 0.6 K/uL (0.1-1.0); MONOCYTES % (AUTO) 7.8 % (2.0-9.0); NEUTROPHILS # (AUTO) 5.3 K/uL (1.8-7.7); NEUTROPHILS % (AUTO) 73.8 % (40.0-70.0); PLATELET COUNT (AUTO) 271 K/uL (150-450); RED BLOOD CELL COUNT(AUTO) 3.13 MIL/uL (4.00-5.20)
[2017-10-02] MEDS: POTASSIUM CHL 10 MEQ/WATER 50 ML IV SCH ×2 (07:45→08:45)
[2017-10-02 08:03] LABS: CALCIUM, TOTAL 8.5 mg/dL (8.8-10.5); CREATININE 1.59 mg/dL (0.60-1.30); POTASSIUM 4.5 mmol/L (3.5-5.1)
[2017-10-02] MEDS: ASPIRIN 81 MG CHEWABLE TABLET PO SCH (09:36)
[2017-10-02] MEDS: PANTOPRAZOLE SODIUM 40 MG/VIAL IVP SCH (09:36)
[2017-10-02] MEDS: EPOETIN ALFA 10,000 UNITS/ML VIAL SQ SCH (09:37)
[2017-10-02] MEDS: NITROGLYCERIN 2% (1 GM=INCH) PACKET TP SCH (09:37)
[2017-10-02] MEDS: MULTIVITAMINS WITH MINERALS, THERAPEUTIC TABLET PO SCH (09:37)
[2017-10-02] MEDS: ALLOPURINOL 100 MG TABLET PO SCH (09:37)
[2017-10-02] MEDS: METOPROLOL SUCCINATE 25 MG ER TABLET PO SCH (09:37)
[2017-10-02] MEDS: CALCIUM OYSTER SHELL 500 MG TABLET PO SCH (09:37)
[2017-10-02] MEDS: OXYGEN THERAPY IH SCH (09:38)
[2017-10-02 10:42] VITALS: BP 104/69
[2017-10-02] MEDS ORDERED: ASPI81TA33 PO (12:50)
[2017-10-02] MEDS ORDERED: PANT40TA25 PO (12:51)
[2017-10-10] MEDS ORDERED: FOLI1CAP2 PO (09:46)
[2017-10-10] MEDS ORDERED: FERR-89 PO (09:49)
[2017-10-10] MEDS ORDERED: FURO20 PO (09:50)
== END 2017-10-02 14:10 | disposition home health service (06) | DRG 329 ==
LOC: EMS 09:48 → 5S 20:30 → 5N 22:00
PROVIDERS: ADMIT Internal Medicine; ATTEND Internal Medicine
PROC: 0DBK8ZX Excision of Ascending Colon, Via Natural or Artificial Opening Endoscopic, Diagnostic (ICD-10-PCS; 2017-09-23)
PROC: 4A023N8 Measurement of Cardiac Sampling and Pressure, Bilateral, Percutaneous Approach (ICD-10-PCS; principal; 2017-09-25)
PROC: B2111ZZ Fluoroscopy of Multiple Coronary Arteries using Low Osmolar Contrast (ICD-10-PCS; 2017-09-25)
PROC: 0DTF0ZZ Resection of Right Large Intestine, Open Approach (ICD-10-PCS; 2017-09-26)
PROC: 0WJG4ZZ Inspection of Peritoneal Cavity, Percutaneous Endoscopic Approach (ICD-10-PCS; 2017-09-26)
PROC: 0WUF07Z Supplement Abdominal Wall with Autologous Tissue Substitute, Open Approach (ICD-10-PCS; 2017-09-26)
PROC: 30233N1 Transfusion of Nonautologous Red Blood Cells into Peripheral Vein, Percutaneous Approach (ICD-10-PCS; 2017-09-29)
DX: C18.2 Malignant neoplasm of ascending colon (principal); E43 Unspecified severe protein-calorie malnutrition; N17.9 Acute kidney failure, unspecified; I47.2 Ventricular tachycardia; N18.3 Chronic kidney disease, stage 3 (moderate); I13.0 Hypertensive heart and chronic kidney disease with heart failure and stage 1 through stage 4 chronic kidney disease, or unspecified chronic kidney disease; I42.9 Cardiomyopathy, unspecified; K62.5 Hemorrhage of anus and rectum; I50.42 Chronic combined systolic (congestive) and diastolic (congestive) heart failure; D64.9 Anemia, unspecified; E78.00 Pure hypercholesterolemia, unspecified; E78.5 Hyperlipidemia, unspecified; E87.6 Hypokalemia; I25.10 Atherosclerotic heart disease of native coronary artery without angina pectoris; J44.9 Chronic obstructive pulmonary disease, unspecified; K44.9 Diaphragmatic hernia without obstruction or gangrene; K25.9 Gastric ulcer, unspecified as acute or chronic, without hemorrhage or perforation; K29.70 Gastritis, unspecified, without bleeding; R91.1 Solitary pulmonary nodule; K57.30 Diverticulosis of large intestine without perforation or abscess without bleeding; M10.9 Gout, unspecified; Z53.31 Laparoscopic surgical procedure converted to open procedure; Z80.0 Family history of malignant neoplasm of digestive organs; Z82.49 Family history of ischemic heart disease and other diseases of the circulatory system; Z87.11 Personal history of peptic ulcer disease; Z79.899 Other long term (current) drug therapy; Z90.49 Acquired absence of other specified parts of digestive tract; Z68.25 Body mass index [BMI] 25.0-25.9, adult
CPT/HCPCS: 74177; 82306; 82378; 82570; 82607; 82746; 83540; 83550; 83735; 84100; 84300; 84540; 86850; 86900; 86901; 86920; 87081; 87086; 87804; 88305; 88307; 93005; 93306; 93460; 96361; 96374; 97116; 97162; 97530; 99285; C9113; C9290; G0238; J0131; J0330; J0690; J0885; J1170; J1644; J1940; J2250; J2370; J2405; J2704; J2916; J3010; J3480; J3490; J7030; J7042; J7050; J7120; P9016; P9046; Q9967